=== PATIENT | male | born 1985 | race Caucasian/White ===

== ENCOUNTER 2021-01-22 21:58 | Emergency (ER) | payer OTHER ==
[~2021-01-22] VITALS: Ht 175.3 cm; Wt 80.0 kg
[2021-01-22 22:37] VITALS: BP 124/75
--- NOTE | 2021-01-22 22:50 | PHYS DOC ---
Past History Additional Past Medical Histor: sleep apnea Past Surgical History: Other Additional Past Surgical Histo: anterior cervical dissective fusioin c4-c6 General Adult EDM: Chief Complaint: WOUND CHECK HPI: HPI: ".. I was playing flag foot ball.. and scraped up this Lt leg... I probably did not clean it up quick enough.. 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 Patient presents with above history and entry to the left leg. Has an extensive area of abrasion to the left calf area approximately 8 x 16 cm. Does have draining and inflammation at site. Patient is up-to-date with vaccinations. No recent travel. No specific ill contacts. Denies immunosuppression. Review of Systems: Review of Systems: Constitutional: Denies fever or chills Eyes: Denies change in visual acuity HENT: Denies nasal congestion or sore throat Respiratory: Denies cough or shortness of breath Cardiovascular: Denies chest pain or edema GI: Denies abdominal pain, nausea, vomiting, bloody stools or diarrhea : Denies dysuria Musculoskeletal: Denies back pain or joint pain Integument: Denies rash . Complaints of abrasion left leg with cellulitis. Neurologic: Denies headache, focal weakness or sensory changes Endocrine: Denies polyuria or polydipsia Lymphatic: Denies swollen glands Psychiatric: Denies depression or anxiety Family History: Family History: Noncontributory presentation Current Medications: Current Meds: See nursing for home meds Allergies: Allergies: Allergies Coded Allergies Type Severity Reaction Last Updated Verified Penicillins Allergy Intermediate 01/22/21 Yes amoxicillin Allergy Intermediate 01/22/21 Yes Physical Exam: PE: Constitutional: Well developed, well nourished, no acute distress, non-toxic appearance. [] HENT: Normocephalic, atraumatic, bilateral external ears normal, oropharynx moist, no oral exudates, nose normal. [] Eyes: PERRLA, EOMI, conjunctiva normal, no discharge. [] Neck: Normal range of motion, no tenderness, supple, no stridor. [] Cardiovascular:Heart rate regular rhythm, no murmur [] Lungs & Thorax: Bilateral breath sounds clear to auscultation [] Abdomen: Bowel sounds normal, soft, no tenderness, no masses, no pulsatile masses. [] Skin: Warm, dry, , no rash. Except for the abrasion and cellulitis left leg.. Erythema at site of cellulitis Back: No tenderness, no CVA tenderness. [] Extremities: No tenderness, no cyanosis, no clubbing, ROM intact, left ankle edema. [] Neurologic: Alert and oriented X 3, normal motor function, normal sensory function, no focal deficits noted. [] Psychologic: Affect normal, judgement normal, mood normal. [] Current Patient Data: Vital Signs: Vital Signs Date Time Temp Pulse Resp B/P (MAP) Pulse Ox O2 Delivery O2 Flow Rate FiO2 01/22/21 22:37 98.6 65 18 124/75 (91) 99 Room Air EKG: EKG: [] Radiology/Procedures: Radiology/Procedures: Declines x-ray at this time [] Heart Score: C/O Chest Pain: N/A Risk Factors: Risk Factors: DM, Current or recent (<one month) smoker, HTN, HLP, family history of CAD, obesity. Risk Scores: Score 0 - 3: 2.5% MACE over next 6 weeks - Discharge Home Score 4 - 6: 20.3% MACE over next 6 weeks - Admit for Clinical Observation Score 7 - 10: 72.7% MACE over next 6 weeks - Early Invasive Strategies Course & Med Decision Making: Course & Med Decision Making Pertinent Labs and Imaging studies reviewed. (See chart for details) Patient patient abrasion cleaned and triple antibiotic ointment applied. Dressing applied. Patient use warm compresses of salt water and Epson salts 4 times a day. Afterwards apply antibiotic ointment Polysporin. Patient take Bactrim DS twice a day. Patient follow-up primary care. Patient return if any concerns. Impression: 1. Abrasion left leg 2. Cellulitis [] Dragon Disclaimer: Dragon Disclaimer: This electronic medical record was generated, in whole or in part, using a voice recognition dictation system. Departure Departure: Referrals: PCP,UNKNOWN (PCP) Scripts Sulfamethoxazole/Trimethoprim (BACTRIM DS TABLET) 1 Each Tablet 1 TAB PO BID for cellulitis for 10 Days, #20 TAB 0 Refills Prov: RODRIGO BARNEY MD 01/22/21 Bacitracin/Polymyxin B Sulfate (POLYSPORIN OINTMENT) 28.3 Gm Oint...g. 28.3 GM TP QID for cellulitis for 30 Days, MISC Prov: RODRIGO BARNEY MD 01/22/21 Rose Disclaimer This chart was dictated in whole or in part using Voice Recognition software in a busy, high-work load, and often noisy Emergency Department environment. It may contain unintended and wholly unrecognized errors or omissions. RODRIGO BARNEY MD Jan 22, 2021 22:50
[2021-01-22] MEDS ORDERED: BACI28.34 TP (22:53)
[2021-01-22] MEDS ORDERED: SULF1TAB24 PO (22:53)
[2021-01-22] MEDS ORDERED: SMZ/TMP 800/160MG TABLET. PO ONE (23:30)
[2021-01-22] MEDS ORDERED: BACITRACIN ZINC TOPICAL OINT PACKET. TP ONE (23:30)
== END 2021-01-23 00:15 | disposition home or self-care (01) ==
LOC: ER 21:58
DX: S80.812A Abrasion, left lower leg, initial encounter (principal); L03.116 Cellulitis of left lower limb; Z88.0 Allergy status to penicillin; Z88.1 Allergy status to other antibiotic agents; X58.XXXA Exposure to other specified factors, initial encounter; Y93.61 Activity, american tackle football; Y92.89 Other specified places as the place of occurrence of the external cause; Y99.8 Other external cause status
CPT/HCPCS: 99283

== ENCOUNTER 2021-08-26 06:30 | Emergency (ER) | payer OTHER ==
[~2021-08-26] VITALS: Ht 175.3 cm; Wt 83.4 kg
[~2021-08-26 06:30] MED LIST: BACI28.34 TP; SULF1TAB24 PO
[2021-08-26] MEDS ORDERED: ONDANSETRON PF 4 MG/2 ML VIAL. IVP ONE (08:00)
[2021-08-26] MEDS ORDERED: IV NORMAL SALINE 1,000ML 1,000 ML IV ONE (08:00)
--- NOTE | 2021-08-26 08:07 | PHYS DOC ---
Past History Additional Past Medical Histor: sleep apnea Past Surgical History: Other Additional Past Surgical Histo: anterior cervical dissective fusioin c4-c6 Alcohol Use: Occasionally General Adult EDM: Chief Complaint: FLU SYMPTOM HPI: HPI: Patient is a male presenting to the emergency department for watery diarrhea, nausea with belching, generalized abdominal pain, and body aches for the past 2 days. Patient states he has had numerous watery stools. Denies any raw or undercooked food, recent travel or sick contacts. Patient has not taken anything for symptoms at home. Review of Systems: Review of Systems: All other systems within normal limits except for as noted in the HPI Current Medications: Current Meds: Current Medications Medications (Trade) Dose Ordered Sig/Mitch Start Time Stop Time Status Last Admin Dose Admin Ondansetron HCl (Zofran) 4 mg 1X ONCE 08/26/21 08:00 08/26/21 08:01 Sodium Chloride 1,000 ml @ 1,000 mls/hr 1X ONCE 08/26/21 08:00 08/26/21 08:59 Allergies: Allergies: Allergies Coded Allergies Type Severity Reaction Last Updated Verified Penicillins Allergy Intermediate 01/22/21 Yes amoxicillin Allergy Intermediate 01/22/21 Yes Physical Exam: PE: Constitutional: Well developed, well nourished, no acute distress, non-toxic appearance. [] HENT: Normocephalic, atraumatic, bilateral external ears normal, nose normal. [] Eyes: PERRLA, conjunctiva normal, no discharge. [] Neck: No rigidity, supple, no stridor. [] Cardiovascular: Regular rate and rhythm, brisk cap refill [] Lungs & Thorax: Non labored symmetric respirations, no tachypnea or respiratory distress [] Abdomen: Soft, nondistended, no point tenderness palpation. Skin: Warm, dry, no erythema, no rash. [] Back: Unremarkable Extremities: No deformities, range of motion grossly intact, no lower extremity edema [] Neurologic: Alert and oriented X 3, no focal deficits noted. [] Psychologic: Affect normal, judgement normal, mood normal. [] Current Patient Data: Vital Signs: Vital Signs Date Time Temp Pulse Resp B/P (MAP) Pulse Ox O2 Delivery O2 Flow Rate FiO2 08/26/21 06:32 98.0 74 16 135/90 (105) 100 Room Air EKG: EKG: [] Radiology/Procedures: Radiology/Procedures: [] Heart Score: C/O Chest Pain: No Risk Factors: Risk Factors: DM, Current or recent (<one month) smoker, HTN, HLP, family history of CAD, obesity. Risk Scores: Score 0 - 3: 2.5% MACE over next 6 weeks - Discharge Home Score 4 - 6: 20.3% MACE over next 6 weeks - Admit for Clinical Observation Score 7 - 10: 72.7% MACE over next 6 weeks - Early Invasive Strategies Course & Med Decision Making: Course & Med Decision Making Mild elevated creatinine, no vomiting or bowel movements while in emergency depa rtment. Rose Disclaimer: Dragjeffery Disclaimer: This electronic medical record was generated, in whole or in part, using a voice recognition dictation system. Departure Departure: Impression: Primary Impression: Diarrhea Disposition: 01 HOME / SELF CARE / HOMELESS Condition: STABLE Referrals: PCP,UNKNOWN (PCP) Patient Instructions: Diet for Diarrhea, Adult Scripts Loperamide Hcl (LOPERAMIDE) 2 Mg Tablet 1 TAB PO Q4HRS for loose stool for 10 Days, #20 TAB 0 Refills Prov: LUCA MCGHEE MD 08/26/21 LUCA MCGHEE MD Aug 26, 2021 08:07
[2021-08-26 08:24] VITALS: BP 139/83
[2021-08-26 08:27] LABS: INFLUENZA A PATIENT NEGATIVE (NEGATIVE); INFLUENZA B PATIENT NEGATIVE (NEGATIVE)
[2021-08-26 08:37] LABS: BASO % 1 % (0-3); EOS % 0 % (0-3); HEMATOCRIT 51.7 % (39.0-53.0); HEMOGLOBIN 17.5 g/dL (13.0-17.5); LYMPH # 1.1 x10^3/uL (1.0-4.8); LYMPH % 16 % (24-48); MEAN CORPUSCULAR HEMOGLOBIN 30 pg (25-35); MEAN CORPUSCULAR HGB CONC 34 g/dL (31-37); MEAN CORPUSCULAR VOLUME 90 fL (79-100); MONO # 0.8 x10^3/uL (0.0-1.1); MONO % 10 % (0-9); NEUT # 5.3 x10^3uL (1.8-7.7); NEUT % 73 % (31-73); PLATELET COUNT 216 x10^3/uL (140-400); RED BLOOD COUNT 5.75 x10^6/uL (4.30-5.70); RED CELL DISTRIBUTION WIDTH 13.5 % (11.5-14.5); WHITE BLOOD COUNT 7.3 x10^3/uL (4.0-11.0)
[2021-08-26 08:43] LABS: CALCIUM 9.1 mg/dL (8.5-10.1); CREATININE 1.4 mg/dL (0.7-1.3); POTASSIUM 4.2 mmol/L (3.5-5.1)
[2021-08-26 08:50] LABS: ALBUMIN 4.4 g/dL (3.4-5.0); ALBUMIN/GLOBULIN RATIO 1.2 (1.0-1.7); MAGNESIUM 2.2 mg/dL (1.8-2.4); PHOSPHORUS 4.3 mg/dL (2.6-4.7); TOTAL BILIRUBIN 0.8 mg/dL (0.2-1.0); TOTAL PROTEIN 8.2 g/dL (6.4-8.2)
[2021-08-26] MEDS ORDERED: LOPE2TAB27 PO (09:46)
== END 2021-08-26 09:57 | disposition home or self-care (01) ==
LOC: ER 06:30
DX: R19.7 Diarrhea, unspecified (principal); R11.0 Nausea; R10.84 Generalized abdominal pain; Z20.822 Contact with and (suspected) exposure to COVID-19; Z88.0 Allergy status to penicillin; Z88.1 Allergy status to other antibiotic agents
CPT/HCPCS: 80053; 83690; 83735; 84100; 85025; 87428; 96361; 96374; 99283; J2405; J7030